=== PATIENT | male | born 1940 | race Caucasian/White ===

== ENCOUNTER → 2016-12-26 | Outpatient (CLI) | payer OTHER, SELFPAY ==
[~2016-12-26] MED LIST: AMARYL 2MG TABLE2 MG PO; ASPIR 8181 MG PO; CARDIZEM120 MG PO; CLARITIN10 MG PO; CRESTOR10 MG PO; CRESTOR5 MG PO; DILTIAZEM 24HR120 MG PO; DYMISTA NASAL S23 GM; FISH OIL 1,0001 EAC3 PO; FISH OIL500 MG PO; FOLIC ACID 1 MG1 MG PO; FOLIC ACID1 MG PO; GLIMEPIRIDE4 MG PO; GLUCOPHAGE1000 MG PO; GLUCOPHAGE500 MG PO; HYDROCHLOROTH12.5 M1 PO; LISINOPRIL10 MG PO; NORCO 5-325 TA1 EACH PO; PLAVIX 75 MG TA75 MG PO; PLAVIX75 MG PO; PROTONIX40 MG PO; SAW PALMETTO500 MG PO; VIT B; VIT C; VITAMIN B COMP1 EAC2 PO; ZETIA 10 MG TAB10 MG PO; ZETIA10 MG PO; ZINC50 M1 PO
[2016-12-26 12:59] LABS: HEMOGLOBIN 14.5 gm/dl (14.0-17.5); RED BLOOD COUNT 5.09 M/UL (4.20-5.50); WHITE BLOOD COUNT 7.3 K/UL (4.5-11.0)
[2016-12-26 13:27] LABS: BUN/CREATININE RATIO 23 (0-10)
== END ==
LOC: LAB 10:38
PROVIDERS: Family Medicine
DX: E11.9 Type 2 diabetes mellitus without complications (principal)
CPT/HCPCS: 36415; 80053; 80061; 82043; 82570; 85025

== ENCOUNTER → 2017-02-14 | Outpatient (CLI) | payer OTHER, SELFPAY ==
[2017-02-14 17:23] LABS: HEMOGLOBIN 13.7 gm/dl (14.0-17.5); RED BLOOD COUNT 4.82 M/UL (4.20-5.50); WHITE BLOOD COUNT 6.5 K/UL (4.5-11.0)
== END ==
LOC: LAB 15:02
PROVIDERS: Family Medicine
DX: D64.9 Anemia, unspecified (principal)
CPT/HCPCS: 36415; 82728; 83540; 83550; 85025

== ENCOUNTER → 2017-02-15 | Outpatient (CLI) | payer OTHER | LOC: LBRF 11:12 | DX: D64.9 Anemia, unspecified (principal) | CPT/HCPCS: 82272 ==

== ENCOUNTER → 2020-11-08 | Outpatient (CLI) | payer MEDICARE, OTHER ==
[~2020-11-08] MED LIST changes: +LOTRIMIN CREAM15 GM TP; +RANITIDINE HCL150 M1 PO; +ROBITUSSIN100 MG/51 PO
[2020-11-08 12:38] LABS: HEMOGLOBIN 13.8 gm/dl (14.0-17.5); RED BLOOD COUNT 4.39 M/UL (4.20-5.50); WHITE BLOOD COUNT 8.3 K/UL (4.5-11.0)
[2020-11-08 13:25] LABS: BUN/CREATININE RATIO 26 (0-10)
== END ==
LOC: LAB 12:07
PROVIDERS: Nurse Practitioner Family
DX: E78.5 Hyperlipidemia, unspecified (principal); E11.9 Type 2 diabetes mellitus without complications; R68.89 Other general symptoms and signs; R79.89 Other specified abnormal findings of blood chemistry; R53.83 Other fatigue
CPT/HCPCS: 80053; 80061; 83036; 84443; 85027

== ENCOUNTER → 2020-11-22 | Outpatient (CLI) | payer MEDICARE, OTHER ==
[2020-11-23 16:11] LABS: LYME IGG/IGM AB <0.91 ISR (0.00-0.90)
== END ==
LOC: LAB 10:57
PROVIDERS: Internal Medicine Cardiovascular Disease
DX: T14.8XXA Other injury of unspecified body region, initial encounter (principal); W57.XXXA Bitten or stung by nonvenomous insect and other nonvenomous arthropods, initial encounter
CPT/HCPCS: 36415; 86618; 86757

== ENCOUNTER → 2021-02-14 | Outpatient (CLI) | payer MEDICARE ==
[2021-02-14 12:43] LABS: HEMOGLOBIN 14.3 gm/dl (14.0-17.5); RED BLOOD COUNT 4.52 M/UL (4.20-5.50); WHITE BLOOD COUNT 7.8 K/UL (4.5-11.0)
[2021-02-14 13:18] LABS: BUN/CREATININE RATIO 17 (0-10)
== END ==
LOC: LAB 11:54
PROVIDERS: Nurse Practitioner Family
DX: Z12.5 Encounter for screening for malignant neoplasm of prostate (principal); R68.89 Other general symptoms and signs; R79.89 Other specified abnormal findings of blood chemistry; E78.5 Hyperlipidemia, unspecified; R53.83 Other fatigue; R73.09 Other abnormal glucose
CPT/HCPCS: 36415; 80053; 80061; 83036; 84443; 85025; G0103

== ENCOUNTER → 2021-04-14 | Day surgery (SDC) | payer MEDICARE ==
[~2021-04-14] MED LIST changes: +AMARYL1 MG PO; +FLOMAX 0.4 MG0.4 MG PO; +HYDROCHLOROTHIA25 MG PO; +MYRBETRIQ50 MG PO; +ZINC30 MG PO
== END | disposition home or self-care (01) ==
LOC: OR 06:40
PROVIDERS: Internal Medicine Gastroenterology
PROC: 0DJ08ZZ Inspection of Upper Intestinal Tract, Via Natural or Artificial Opening Endoscopic (ICD-10-PCS; principal; 2021-04-14 09:50)
DX: R13.14 Dysphagia, pharyngoesophageal phase (principal); K22.8 Other specified diseases of esophagus; K21.00 Gastro-esophageal reflux disease with esophagitis, without bleeding; E11.9 Type 2 diabetes mellitus without complications; I11.9 Hypertensive heart disease without heart failure; E78.5 Hyperlipidemia, unspecified; I25.10 Atherosclerotic heart disease of native coronary artery without angina pectoris; E78.00 Pure hypercholesterolemia, unspecified; E66.9 Obesity, unspecified; Z68.31 Body mass index [BMI] 31.0-31.9, adult; Z20.822 Contact with and (suspected) exposure to COVID-19; Z85.038 Personal history of other malignant neoplasm of large intestine; Z79.84 Long term (current) use of oral hypoglycemic drugs; Z79.82 Long term (current) use of aspirin; Z79.899 Other long term (current) drug therapy; Z95.5 Presence of coronary angioplasty implant and graft; Z95.1 Presence of aortocoronary bypass graft; Z88.7 Allergy status to serum and vaccine
CPT/HCPCS: 82962; J2704; J7040

== ENCOUNTER → 2021-07-04 | Outpatient (CLI) | payer MEDICARE ==
[2021-07-04 12:06] LABS: HEMOGLOBIN 14.4 gm/dl (14.0-17.5); RED BLOOD COUNT 4.49 M/UL (4.20-5.50); WHITE BLOOD COUNT 6.8 K/UL (4.5-11.0)
[2021-07-04 12:36] LABS: BUN/CREATININE RATIO 20 (0-10)
== END ==
LOC: LAB 11:24
PROVIDERS: Nurse Practitioner Family
DX: R68.89 Other general symptoms and signs (principal); R79.89 Other specified abnormal findings of blood chemistry; E78.5 Hyperlipidemia, unspecified; R53.83 Other fatigue; R73.09 Other abnormal glucose
CPT/HCPCS: 36415; 80053; 80061; 83036; 84443; 85025

== ENCOUNTER 2021-08-21 19:08 | Inpatient (IN) | payer MEDICARE, OTHER ==
[~2021-08-21] VITALS: Ht 172.7 cm; Wt 99.3 kg
[~2021-08-21 19:08] MED LIST changes: +AMARYL1 MG GT; -AMARYL1 MG PO; -ASPIR 8181 MG PO; +ASPIRIN EC81 MG GT; +FLOMAX 0.4 MG0.4 MG GT; -FLOMAX 0.4 MG0.4 MG PO; +GLUCOPHAGE 850850 MG GT; -GLUCOPHAGE1000 MG PO; +MYRBETRIQ50 MG GT; -MYRBETRIQ50 MG PO; +PROTONIX40 MG GT; -ZINC30 MG PO; +ZINC50 M2 GT
[2021-08-21 20:18] LABS: HEMOGLOBIN 13.7 gm/dl (14.0-17.5); RED BLOOD COUNT 4.44 M/UL (4.20-5.50)
[2021-08-21 21:03] LABS: BUN/CREATININE RATIO 25 (0-10)
[2021-08-22] MEDS ORDERED: LOSARTAN POTASS25 MG GT (10:52)
[2021-08-22] MEDS ORDERED: FLONASE 0.05% N16 GM (10:52)
[2021-08-22] MEDS ORDERED: NYSTATIN15 GM TOP (10:53)
[2021-08-22] MEDS ORDERED: VITAMIN C500 M4 GT (10:54)
[2021-08-22] MEDS ORDERED: BROMPHENIR-PSE118 ML PO (10:54)
[2021-08-22] MEDS ORDERED: FUROSEMIDE20 MG GT (10:54)
[2021-08-22] MEDS ORDERED: VITAMIN D350 MC3 GT (10:55)
[2021-08-22] MEDS ORDERED: CRANBERRY CONC1 EACH GT (10:55)
[2021-08-22] MEDS ORDERED: PRESERVISION A1 EAC2 GT (10:56)
[2021-08-22] MEDS ORDERED: BENADRYL A12.5 MG/5 PO (10:56)
[2021-08-23 07:55] LABS: HEMOGLOBIN 12.6 gm/dl (14.0-17.5); RED BLOOD COUNT 4.28 M/UL (4.20-5.50); WHITE BLOOD COUNT 9.6 K/UL (4.5-11.0)
[2021-08-23 08:29] LABS: BUN/CREATININE RATIO 16 (0-10)
[2021-08-24 04:21] LABS: HEMOGLOBIN 13.5 gm/dl (14.0-17.5); RED BLOOD COUNT 4.43 M/UL (4.20-5.50); WHITE BLOOD COUNT 9.4 K/UL (4.5-11.0)
[2021-08-24 05:05] LABS: BUN/CREATININE RATIO 21 (0-10)
[2021-08-24] MEDS ORDERED: PROVENTIL HFA6.7 GM INH (17:36)
[2021-08-24] MEDS ORDERED: AUGMENTIN400 MG/5 M GT (17:36)
[2021-08-24] MEDS ORDERED: LOPRESSOR 25 MG25 MG PEG (17:36)
[2021-08-24] MEDS ORDERED: GLUCERNA237 ML PEG (17:40)
--- NOTE | 2021-08-24 19:02 | NUR ---
PATIENTS SON IN ROOM. EDUCATED SON ABOUT PEG TUBE USE, PEG TUBE CARE, GIVING MEDS THROUGH PEG TUBE, AND GIVING JEVITY THROUGH PEG TUBE WITH WATER FLUSHES. SON VERBALIZED UNDERSTANDING AND DEMONSTRATED KNOWLEDGE OF THIS INFORMATION. SON DENIED ANY QUESTIONS. 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 TWENTY SERVINGS OF JEVITY 1.5 GIVEN TO SON ALSO.
== END 2021-08-24 20:46 | disposition home or self-care (01) | DRG 177 ==
LOC: ER1 19:08 → CDU 20:21 → MED SURG 4 20:21 → CDU 20:21 → MED SURG 4 08-22 22:03
PROVIDERS: Physician Assistant; Surgery; ADMIT Internal Medicine Infectious Disease
PROC: 0DH68UZ Insertion of Feeding Device into Stomach, Via Natural or Artificial Opening Endoscopic (ICD-10-PCS; principal; 2021-08-23 12:00)
DX: J69.0 Pneumonitis due to inhalation of food and vomit (principal); J96.01 Acute respiratory failure with hypoxia; Z20.822 Contact with and (suspected) exposure to COVID-19; R59.1 Generalized enlarged lymph nodes; J60 Coalworker's pneumoconiosis; K57.90 Diverticulosis of intestine, part unspecified, without perforation or abscess without bleeding; G47.33 Obstructive sleep apnea (adult) (pediatric); I11.0 Hypertensive heart disease with heart failure; I50.9 Heart failure, unspecified; D49.7 Neoplasm of unspecified behavior of endocrine glands and other parts of nervous system; I25.10 Atherosclerotic heart disease of native coronary artery without angina pectoris; E01.0 Iodine-deficiency related diffuse (endemic) goiter; R13.10 Dysphagia, unspecified; Z85.038 Personal history of other malignant neoplasm of large intestine; Z95.5 Presence of coronary angioplasty implant and graft; Z98.890 Other specified postprocedural states; Z88.8 Allergy status to other drugs, medicaments and biological substances; Z87.891 Personal history of nicotine dependence; Z79.82 Long term (current) use of aspirin; Z79.899 Other long term (current) drug therapy; J64 Unspecified pneumoconiosis
CPT/HCPCS: 36415; 36600; 70492; 71045; 71250; 80048; 80053; 81001; 82550; 82553; 82803; 82962; 83874; 83880; 84439; 84443; 84484; 85025; 86140; 87040; 87086; 92526; 92610; 93005; 94664; 94760; 99285; C9113; J0692; J1650; J1940; J2543; J2704; J3370; J7030; J7040; J7070; Q9967; U0002